=== PATIENT | male | born 1995 | race Native Hawaiian/Other Pacific Islander ===

== ENCOUNTER → 2016-12-07 | Outpatient (CLI) | payer OTHER ==
[~2016-12-07] MED LIST: ACETAMINOPHEN TAB 500 MG TAB PO ONE; LORATADINE 10 MG TAB PO ONE; SODIUM CHLORIDE 0.9% 250 ML in EMPTY BAG 1 BAG IV PRN; SODIUM CHLORIDE 0.9% 500 ML in EMPTY BAG 1 BAG IV PRN
[2016-12-07 07:42] VITALS: TEMP 98.3
[2016-12-07 09:21] VITALS: BP 117/59; PULSE 79; RESP 20
== END | disposition home or self-care (01) ==
LOC: PROCWHC3 07:05
PROVIDERS: ATTEND Physician Assistant
DX: K50.80 Crohn's disease of both small and large intestine without complications (principal)
CPT/HCPCS: 96413; 96415; J1745; 96361

== ENCOUNTER 2016-12-27 16:24 | Emergency (ER) | payer OTHER ==
[2016-12-27 17:03] VITALS: RESP 18
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
--- NOTE | 2016-12-27 18:21 | XR ---
EXAMINATION TYPE: XR hand complete LT DATE OF EXAM: 12/27/2016 5:50 PM COMPARISON: NONE HISTORY: Pain after injury 2 weeks ago TECHNIQUE: 3 views FINDINGS: Bones and joints and soft tissues are negative for acute findings. IMPRESSION: No acute process.
--- NOTE | 2016-12-27 18:24 | XR ---
EXAMINATION TYPE: XR knee complete LT DATE OF EXAM: 12/27/2016 5:50 PM COMPARISON: NONE HISTORY: Pain after injury, particularly anteriorly TECHNIQUE: 3 views FINDINGS: Small volume of suprapatellar bursal fluid is noted. There is no fracture or malalignment. IMPRESSION: For fracture or malalignment.
--- NOTE | 2016-12-27 18:44 | ED ---
Disposition Clinical Impression: Suprapatellar bursitis of left knee, Left hand pain Disposition: HOME SELF-CARE Condition: Good Instructions: Knee Bursitis (ED) Additional Instructions: Rest, elevate and ice on and off for 10-15 minutes for the next 24-48 hours. Take Tylenol or Motrin as needed for pain. Nonweight bearing of left leg. Please follow-up with quality control specialist in 24-48 hours for reevaluation. If new symptoms develop or symptoms worsen, please return to the ER. Referrals: Esteban Watkins DO [Doctor of Osteopathic Medicine] - 1-2 days Procedures - Orthopedic Splinting/Casting Injury #1 Side: left Lower Extremity Injury Location: knee Lower Extremity Immobilizer: Jered wrap Other Orthopedic Equipment: crutches
[2016-12-27 18:52] VITALS: BP 122/70; PULSE 60; TEMP 98.3
== END 2016-12-27 18:52 | disposition home or self-care (01) ==
LOC: EC 16:24
DX: M70.42 Prepatellar bursitis, left knee (principal); M79.642 Pain in left hand; Z79.899 Other long term (current) drug therapy; W22.8XXA Striking against or struck by other objects, initial encounter; W23.0XXA Caught, crushed, jammed, or pinched between moving objects, initial encounter; Y93.59 Activity, other involving other sports and athletics played individually
CPT/HCPCS: 99283

== ENCOUNTER → 2017-04-18 | Outpatient (CLI) | payer OTHER ==
[2017-04-18 11:44] VITALS: TEMP 98.3
[2017-04-18 13:33] VITALS: BP 100/56; PULSE 70; RESP 18
== END ==
LOC: PROCWHC3 11:22
PROVIDERS: ATTEND Physician Assistant
DX: K50.80 Crohn's disease of both small and large intestine without complications (principal)
CPT/HCPCS: 96413; 96415; J1745

== ENCOUNTER → 2017-07-21 | Outpatient (CLI) | payer OTHER ==
[~2017-07-21] MED LIST changes: -ACETAMINOPHEN TAB 500 MG TAB PO ONE; -LORATADINE 10 MG TAB PO ONE; -SODIUM CHLORIDE 0.9% 250 ML in EMPTY BAG 1 BAG IV PRN
[2017-07-21 09:28] VITALS: TEMP 98.2
[2017-07-21 10:49] VITALS: BP 100/52; PULSE 54; RESP 18
== END | disposition home or self-care (01) ==
LOC: PROCWHC3 08:40
PROVIDERS: ATTEND Physician Assistant
DX: Z51.11 Encounter for antineoplastic chemotherapy (principal); K50.80 Crohn's disease of both small and large intestine without complications
CPT/HCPCS: 96413; 96415; J1745

== ENCOUNTER → 2017-09-20 | Outpatient (CLI) | payer OTHER ==
[2017-09-20 23:25] VITALS: BP 114/69; PULSE 69; RESP 16; TEMP 98.5
== END | disposition home or self-care (01) ==
LOC: PROCWHC3 10:57
PROVIDERS: ATTEND Physician Assistant
DX: K50.80 Crohn's disease of both small and large intestine without complications (principal)
CPT/HCPCS: 96413; 96415; J1745

== ENCOUNTER → 2017-11-15 | Outpatient (CLI) | payer OTHER ==
[~2017-11-15] MED LIST changes: +INFLIXIMAB-DYYB 300 MG in SODIUM CHLORIDE 0.9% 250 ML IV ONE
[2017-11-15 11:52] VITALS: TEMP 98.6
[2017-11-15 12:22] VITALS: RESP 16
[2017-11-15 13:16] VITALS: BP 121/60; PULSE 79
== END | disposition home or self-care (01) ==
LOC: PROCWHC3 11:37
PROVIDERS: ATTEND Physician Assistant
DX: K50.80 Crohn's disease of both small and large intestine without complications (principal)
CPT/HCPCS: 96361; 96413; 96415; Q5102

== ENCOUNTER → 2018-01-10 | Outpatient (CLI) | payer OTHER ==
[~2018-01-10] MED LIST changes: +INFLIXIMAB-DYYB 300 MG in SODIUM CHLORIDE 0.9% 250 ML IV NR; -INFLIXIMAB-DYYB 300 MG in SODIUM CHLORIDE 0.9% 250 ML IV ONE
[2018-01-10 11:45] VITALS: RESP 16; TEMP 97.6
[2018-01-10 13:13] VITALS: BP 125/78; PULSE 78
== END | disposition home or self-care (01) ==
LOC: PROCWHC3 11:16
PROVIDERS: ATTEND Physician Assistant
DX: K50.80 Crohn's disease of both small and large intestine without complications (principal)
CPT/HCPCS: 96413; 96415; Q5103

== ENCOUNTER → 2018-03-07 | Outpatient (CLI) | payer OTHER ==
[2018-03-07 12:05] VITALS: RESP 16; TEMP 98
[2018-03-07 13:52] VITALS: BP 120/57; PULSE 68
== END | disposition home or self-care (01) ==
LOC: PROCWHC3 11:32
PROVIDERS: ATTEND Physician Assistant
DX: K50.80 Crohn's disease of both small and large intestine without complications (principal)
CPT/HCPCS: 96413; 96415; Q5103

== ENCOUNTER → 2018-05-02 | Outpatient (CLI) | payer OTHER ==
[2018-05-02 11:23] VITALS: RESP 16; TEMP 98
[2018-05-02 13:05] VITALS: BP 105/57; PULSE 64
== END | disposition home or self-care (01) ==
LOC: PROCWHC3 11:10
PROVIDERS: ATTEND Physician Assistant
DX: K50.80 Crohn's disease of both small and large intestine without complications (principal)
CPT/HCPCS: 96413; 96415; Q5103

== ENCOUNTER 2018-06-25 09:30 | Emergency (ER) | payer OTHER ==
[2018-06-25 09:46] VITALS: RESP 18
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
[2018-06-25 11:34] VITALS: BP 117/79; PULSE 74; TEMP 98.4
== END 2018-06-25 11:32 | disposition home or self-care (01) ==
LOC: EC 09:30
DX: T22.011A Burn of unspecified degree of right forearm, initial encounter (principal); T31.0 Burns involving less than 10% of body surface; X14.1XXA Other contact with hot air and other hot gases, initial encounter; Y92.59 Other trade areas as the place of occurrence of the external cause
CPT/HCPCS: 99283

== ENCOUNTER → 2018-06-27 | Outpatient (CLI) | payer OTHER ==
[2018-06-27 11:38] VITALS: RESP 16; TEMP 98.5
[2018-06-27 13:05] VITALS: BP 116/80; PULSE 64
== END ==
LOC: PROCWHC3 11:02
PROVIDERS: ATTEND Physician Assistant
DX: K50.80 Crohn's disease of both small and large intestine without complications (principal)
CPT/HCPCS: 96413; 96415; Q5103

== ENCOUNTER → 2018-08-29 | Outpatient (CLI) | payer OTHER ==
[~2018-08-29] MED LIST changes: +SODIUM CHLORIDE 0.9% 500 ML 500 ML in EMPTY BAG 1 BAG IV PRN; -SODIUM CHLORIDE 0.9% 500 ML in EMPTY BAG 1 BAG IV PRN
[2018-08-29 10:41] VITALS: RESP 16; TEMP 98.3
[2018-08-29 12:23] VITALS: BP 109/73; PULSE 79
== END ==
LOC: PROCWHC3 08-22 11:06
PROVIDERS: ATTEND Physician Assistant
DX: K50.80 Crohn's disease of both small and large intestine without complications (principal)
CPT/HCPCS: 96413; 96415; Q5103

== ENCOUNTER → 2018-10-26 | Outpatient (CLI) | payer OTHER ==
[2018-10-26 11:49] VITALS: TEMP 97.9
[2018-10-26 12:55] VITALS: RESP 15
[2018-10-26 13:31] VITALS: BP 161/65; PULSE 71
== END | disposition home or self-care (01) ==
LOC: PROCWHC3 11:18
PROVIDERS: ATTEND Physician Assistant
DX: K50.80 Crohn's disease of both small and large intestine without complications (principal)
CPT/HCPCS: 96413; 96415; Q5103

== ENCOUNTER → 2019-01-23 | Outpatient (CLI) | payer OTHER ==
[2019-01-23 08:17] VITALS: RESP 16; TEMP 97.7
[2019-01-23 09:59] VITALS: BP 103/55; PULSE 67
== END ==
LOC: PROCWHC3 08:03
PROVIDERS: ATTEND Physician Assistant
DX: K50.80 Crohn's disease of both small and large intestine without complications (principal)
CPT/HCPCS: 96413; 96415; Q5103

== ENCOUNTER → 2019-04-24 | Outpatient (CLI) | payer OTHER ==
[2019-04-24 12:37] VITALS: RESP 16; TEMP 98.5
[2019-04-24 13:42] VITALS: BP 117/69; PULSE 73
== END ==
LOC: PROCWHC3 12:23
PROVIDERS: ATTEND Physician Assistant
DX: K50.80 Crohn's disease of both small and large intestine without complications (principal)
CPT/HCPCS: 96413; 96415; Q5103

== ENCOUNTER → 2019-06-24 | Outpatient (CLI) | payer OTHER ==
[2019-06-24 13:01] VITALS: RESP 16; TEMP 98.1
[2019-06-24 14:54] VITALS: BP 120/70; PULSE 60
== END | disposition home or self-care (01) ==
LOC: PROCWHC3 11:50
DX: K50.80 Crohn's disease of both small and large intestine without complications (principal)
CPT/HCPCS: 96365; 96366; Q5103

== ENCOUNTER → 2019-08-23 | Outpatient (CLI) | payer OTHER ==
[2019-08-23 10:20] VITALS: TEMP 98.5
[2019-08-23 11:46] VITALS: BP 107/66; PULSE 79; RESP 18
== END | disposition home or self-care (01) ==
LOC: PROCWHC3 10:06
PROVIDERS: ATTEND Physician Assistant
DX: K50.80 Crohn's disease of both small and large intestine without complications (principal)
CPT/HCPCS: 96413; 96415; Q5103

== ENCOUNTER → 2019-10-28 | Outpatient (CLI) | payer OTHER ==
[2019-10-28 09:13] VITALS: TEMP 97.6
[2019-10-28 10:15] VITALS: RESP 18
[2019-10-28 10:47] VITALS: BP 108/70; PULSE 81
== END | disposition home or self-care (01) ==
LOC: PROCWHC3 09:01
PROVIDERS: ATTEND Physician Assistant
DX: K50.80 Crohn's disease of both small and large intestine without complications (principal)
CPT/HCPCS: 96413; 96415; Q5103

== ENCOUNTER → 2019-12-23 | Outpatient (CLI) | payer OTHER ==
[~2019-12-23] MED LIST changes: +INFLIXIMAB-DYYB 300 MG in SODIUM CHLORIDE 0.9% 220 ML IV NR; -INFLIXIMAB-DYYB 300 MG in SODIUM CHLORIDE 0.9% 250 ML IV NR
[2019-12-23 09:39] VITALS: RESP 16; TEMP 98
[2019-12-23 11:01] VITALS: BP 108/68; PULSE 83
== END | disposition home or self-care (01) ==
LOC: PROCWHC3 09:33
PROVIDERS: ATTEND Physician Assistant
DX: K50.80 Crohn's disease of both small and large intestine without complications (principal)
CPT/HCPCS: 96413; 96415; Q5103

== ENCOUNTER → 2020-03-16 | Outpatient (CLI) | payer OTHER ==
[~2020-03-16] MED LIST changes: +INFLIXIMAB-DYYB 300 MG in SODIUM CHLORIDE 0.9% 250 ML IV NR
[2020-03-16 07:38] VITALS: RESP 18
[2020-03-16 08:46] VITALS: TEMP 97.7
[2020-03-16 09:09] VITALS: BP 99/72; PULSE 52
== END | disposition home or self-care (01) ==
LOC: PROCWHC3 07:21
PROVIDERS: ATTEND Physician Assistant
DX: K50.80 Crohn's disease of both small and large intestine without complications (principal)
CPT/HCPCS: 96413; 96415; Q5103

== ENCOUNTER → 2020-06-16 | Outpatient (CLI) | payer OTHER ==
[~2020-06-16] MED LIST changes: -INFLIXIMAB-DYYB 300 MG in SODIUM CHLORIDE 0.9% 220 ML IV NR
[2020-06-16 12:13] VITALS: RESP 16; TEMP 98.4
[2020-06-16 12:50] VITALS: BP 106/67; PULSE 65
== END | disposition home or self-care (01) ==
LOC: PROCWHC3 11:09
PROVIDERS: ATTEND Physician Assistant
DX: K50.80 Crohn's disease of both small and large intestine without complications (principal)
CPT/HCPCS: 96413; 96415; Q5103

== ENCOUNTER → 2020-08-11 | Outpatient (CLI) | payer OTHER ==
[2020-08-11 11:02] VITALS: RESP 16; TEMP 98.3
[2020-08-11 12:27] VITALS: BP 99/57; PULSE 63
== END | disposition home or self-care (01) ==
LOC: PROCWHC3 10:49
PROVIDERS: ATTEND Physician Assistant
DX: K50.80 Crohn's disease of both small and large intestine without complications (principal)
CPT/HCPCS: 96413; 96415; Q5103

== ENCOUNTER → 2020-10-06 | Outpatient (CLI) | payer OTHER ==
[2020-10-06 08:25] VITALS: RESP 16; TEMP 97.6
[2020-10-06 09:31] VITALS: BP 99/56; PULSE 61
== END | disposition home or self-care (01) ==
LOC: PROCWHC3 08:13
PROVIDERS: ATTEND Physician Assistant
DX: K50.80 Crohn's disease of both small and large intestine without complications (principal)
CPT/HCPCS: 96413; 96415; Q5103

== ENCOUNTER → 2020-12-22 | Outpatient (CLI) | payer OTHER ==
[~2020-12-22] MED LIST changes: +INFLIXIMAB-DYYB 300 MG in SODIUM CHLORIDE 0.9% 220 ML IV NR
[2020-12-22 07:52] VITALS: RESP 16; TEMP 98
[2020-12-22 09:30] VITALS: BP 106/66; PULSE 72
== END | disposition home or self-care (01) ==
LOC: PROCWHC3 07:25
PROVIDERS: ATTEND Physician Assistant
DX: K50.90 Crohn's disease, unspecified, without complications (principal)
CPT/HCPCS: 96413; 96415; Q5103

== ENCOUNTER → 2021-02-23 | Outpatient (CLI) | payer OTHER ==
[~2021-02-23] MED LIST changes: -INFLIXIMAB-DYYB 300 MG in SODIUM CHLORIDE 0.9% 250 ML IV NR
[2021-02-23 08:51] VITALS: RESP 16; TEMP 98.3
[2021-02-23 10:41] VITALS: BP 106/66; PULSE 73
== END ==
LOC: PROCWHC3 08:41
PROVIDERS: ATTEND Physician Assistant
DX: K50.80 Crohn's disease of both small and large intestine without complications (principal)
CPT/HCPCS: 96413; 96415; Q5103

== ENCOUNTER → 2021-04-20 | Outpatient (CLI) | payer OTHER ==
[2021-04-20 09:35] VITALS: RESP 16; TEMP 97.8
[2021-04-20 10:43] VITALS: BP 126/76; PULSE 51
== END ==
LOC: PROCWHC3 08:52
PROVIDERS: ATTEND Physician Assistant
DX: K50.80 Crohn's disease of both small and large intestine without complications (principal)
CPT/HCPCS: 96413; 96415; Q5103

== ENCOUNTER → 2021-10-12 | Outpatient (CLI) | payer OTHER ==
[~2021-10-12] MED LIST changes: -INFLIXIMAB-DYYB 300 MG in SODIUM CHLORIDE 0.9% 220 ML IV NR; +INFLIXIMAB-DYYB 400 MG in SODIUM CHLORIDE 0.9% 250 ML IV NR
[2021-10-12 09:36] VITALS: RESP 16; TEMP 98
[2021-10-12 11:37] VITALS: BP 114/65; PULSE 65
== END ==
LOC: PROCWHC3 09:26
PROVIDERS: ATTEND Internal Medicine Gastroenterology
DX: K50.80 Crohn's disease of both small and large intestine without complications (principal)
CPT/HCPCS: 96413; 96415; Q5103

== ENCOUNTER → 2022-01-19 | Outpatient (CLI) | payer OTHER ==
[2022-01-19 11:39] VITALS: TEMP 98.4
[2022-01-19 12:16] VITALS: RESP 18
[2022-01-19 12:51] VITALS: BP 125/74; PULSE 75
== END ==
LOC: PROCWHC3 10:58
PROVIDERS: ATTEND Internal Medicine Gastroenterology
DX: K50.80 Crohn's disease of both small and large intestine without complications (principal)
CPT/HCPCS: 96413; 96415; Q5103

== ENCOUNTER → 2022-03-25 | Outpatient (CLI) | payer OTHER ==
[2022-03-25 09:34] VITALS: RESP 16; TEMP 98.2
[2022-03-25 11:20] VITALS: BP 104/69; PULSE 80
== END ==
LOC: PROCWHC3 09:16
PROVIDERS: ATTEND Internal Medicine Gastroenterology
DX: K50.80 Crohn's disease of both small and large intestine without complications (principal)
CPT/HCPCS: 96413; 96415; Q5103

== ENCOUNTER → 2022-05-20 | Outpatient (CLI) | payer OTHER ==
[2022-05-20 11:13] VITALS: RESP 16; TEMP 98.2
[2022-05-20 13:03] VITALS: BP 112/78; PULSE 63
== END ==
LOC: PROCWHC3 10:49
PROVIDERS: ATTEND Internal Medicine Gastroenterology
DX: K50.80 Crohn's disease of both small and large intestine without complications (principal)
CPT/HCPCS: 96365; Q5103

== ENCOUNTER → 2022-07-19 | Outpatient (CLI) | payer OTHER ==
[2022-07-19 08:34] VITALS: RESP 16; TEMP 98
[2022-07-19 10:00] VITALS: BP 103/62; PULSE 58
== END ==
LOC: PROCWHC3 08:21
PROVIDERS: ATTEND Internal Medicine Gastroenterology
DX: K50.80 Crohn's disease of both small and large intestine without complications (principal)
CPT/HCPCS: 96413; 96415; Q5103

== ENCOUNTER → 2022-10-10 | Outpatient (CLI) | payer OTHER ==
[2022-10-10 09:20] VITALS: RESP 16; TEMP 98.8
[2022-10-10 11:01] VITALS: BP 88/58; PULSE 57
== END ==
LOC: PROCWHC3 08:51
PROVIDERS: ATTEND Internal Medicine Gastroenterology
DX: K50.80 Crohn's disease of both small and large intestine without complications (principal)
CPT/HCPCS: 96413; 96415; Q5103

== ENCOUNTER → 2022-12-15 | Outpatient (CLI) | payer OTHER ==
[~2022-12-15] MED LIST changes: +INFLIXIMAB-DYYB 400 MG in SODIUM CHLORIDE 0.9% 210 ML IV NR; -INFLIXIMAB-DYYB 400 MG in SODIUM CHLORIDE 0.9% 250 ML IV NR
[2022-12-15 11:35] VITALS: TEMP 98.3
[2022-12-15 12:51] VITALS: BP 118/76; PULSE 74; RESP 16
== END ==
LOC: PROCWHC3 11:05
PROVIDERS: ATTEND Internal Medicine Gastroenterology
DX: K50.80 Crohn's disease of both small and large intestine without complications (principal)
CPT/HCPCS: 96413; 96415; Q5103

== ENCOUNTER → 2023-02-09 | Outpatient (CLI) | payer OTHER ==
[~2023-02-09] MED LIST changes: -INFLIXIMAB-DYYB 400 MG in SODIUM CHLORIDE 0.9% 210 ML IV NR; +INFLIXIMAB-DYYB 400 MG in SODIUM CHLORIDE 0.9% 250 ML IV NR
[2023-02-09 10:50] VITALS: RESP 16; TEMP 98.1
[2023-02-09 12:25] VITALS: BP 124/76; PULSE 70
== END ==
LOC: PROCWHC3 10:34
PROVIDERS: ATTEND Internal Medicine Gastroenterology
DX: K50.80 Crohn's disease of both small and large intestine without complications (principal)
CPT/HCPCS: 96413; 96415; Q5103

== ENCOUNTER → 2023-04-28 | Outpatient (CLI) | payer OTHER ==
[2023-04-28 09:12] VITALS: TEMP 97.8
[2023-04-28 10:06] VITALS: RESP 16
[2023-04-28 10:55] VITALS: BP 115/72; PULSE 64
== END ==
LOC: PROCWHC3 09:02
PROVIDERS: ATTEND Internal Medicine Gastroenterology
DX: K50.90 Crohn's disease, unspecified, without complications (principal)
CPT/HCPCS: 96413; 96415; Q5103

== ENCOUNTER → 2023-06-23 | Outpatient (CLI) | payer OTHER ==
[2023-06-23 11:11] VITALS: RESP 16; TEMP 98.3
[2023-06-23 12:27] VITALS: BP 102/67; PULSE 75
== END ==
LOC: PROCWHC3 10:11
PROVIDERS: ATTEND Internal Medicine Gastroenterology
DX: K50.90 Crohn's disease, unspecified, without complications (principal)
CPT/HCPCS: 96413; 96415; Q5103

== ENCOUNTER → 2023-09-29 | Outpatient (CLI) | payer OTHER ==
[2023-09-29 09:27] VITALS: RESP 16; TEMP 98.1
[2023-09-29 10:40] VITALS: BP 111/67; PULSE 76
== END ==
LOC: PROCWHC3 09:00
PROVIDERS: ATTEND Internal Medicine Gastroenterology
DX: K50.90 Crohn's disease, unspecified, without complications (principal)
CPT/HCPCS: 96413; 96415; Q5103

== ENCOUNTER → 2023-11-29 | Outpatient (CLI) | payer OTHER ==
[2023-11-29] MEDS: SODIUM CHLORIDE 0.9% 500 ML 500 ML in EMPTY BAG 1 BAG IV PRN (10:10)
[2023-11-29] MEDS: INFLIXIMAB-DYYB 400 MG in SODIUM CHLORIDE 0.9% 250 ML IV NR (10:26)
[2023-11-29 10:35] VITALS: RESP 16; TEMP 97.6
[2023-11-29 11:44] VITALS: BP 113/72; PULSE 68
== END ==
LOC: PROCWHC3 10:01
PROVIDERS: ATTEND Internal Medicine Gastroenterology
DX: K50.90 Crohn's disease, unspecified, without complications (principal)
CPT/HCPCS: 96413; 96415; Q5103

== ENCOUNTER → 2024-01-23 | Outpatient (CLI) | payer OTHER ==
[2024-01-23] MEDS: SODIUM CHLORIDE 0.9% 500 ML 500 ML in EMPTY BAG 1 BAG IV PRN (08:45)
[2024-01-23] MEDS: INFLIXIMAB-DYYB 400 MG in SODIUM CHLORIDE 0.9% 250 ML IV NR (09:16)
[2024-01-23 09:21] LABS: Basophils # (A) 0.1 k/uL (0-0.2); Basophils % (A) 1 %; Eosinophils # (A) 0.1 k/uL (0-0.7); Eosinophils % (A) 2 %; HCT 48.1 % (39.0-53.0); HGB 15.8 gm/dL (13.0-17.5); Lymphocytes # (A) 2.3 k/uL (1.0-4.8); Lymphocytes % (A) 28 %; MCHC 32.9 g/dL (31.0-37.0); Mean Platelet Volume 8.4; Monocytes # (A) 0.5 k/uL (0-1.0); Monocytes % (A) 7 %; Neutrophils # (A) 4.9 k/uL (1.3-7.7); Neutrophils % (A) 61 %; Platelet Count 263 k/uL (150-450); RBC 5.28 m/uL (4.30-5.90); RDW 12.9 % (11.5-15.5); WBC 8.1 k/uL (3.8-10.6)
[2024-01-23 09:44] LABS: ALT 31 U/L (4-49); AST 27 U/L (17-59); African American GFR (CKD) >90 (>60 ml/min/1.73 sqM); Albumin 4.2 g/dL (3.5-5.0); Alkaline Phosphatase 82 U/L (38-126); Anion Gap 6 mmol/L; Blood Urea Nitrogen 12 mg/dL (9-20); Calcium 9.4 mg/dL (8.4-10.2); Carbon Dioxide 28 mmol/L (22-30); Chloride 106 mmol/L (98-107); Glucose 94 mg/dL (74-99); Non-African American GFR(CKD) >90 (>60 ml/min/1.73 sqM); Potassium 4.2 mmol/L (3.5-5.1); Sodium 140 mmol/L (137-145); Total Bilirubin 0.4 mg/dL (0.2-1.3)
[2024-01-23 09:49] VITALS: RESP 16; TEMP 98
[2024-01-23 10:38] VITALS: BP 118/71; PULSE 69
== END ==
LOC: PROCWHC3 08:39
PROVIDERS: ATTEND Internal Medicine Gastroenterology
DX: K50.90 Crohn's disease, unspecified, without complications (principal)
CPT/HCPCS: 80053; 85025; 96413; 96415; Q5103

== ENCOUNTER → 2024-08-26 | Outpatient (CLI) | payer OTHER ==
[~2024-08-26] MED LIST changes: -INFLIXIMAB-DYYB 400 MG in SODIUM CHLORIDE 0.9% 250 ML IV NR; +SODIUM CHLORIDE 0.9% 250 ML in EMPTY BAG 1 BAG IV PRN; -SODIUM CHLORIDE 0.9% 500 ML 500 ML in EMPTY BAG 1 BAG IV PRN
[2024-08-26 09:23] VITALS: RESP 16; TEMP 97.5
[2024-08-26] MEDS: SODIUM CHLORIDE 0.9% 500 ML 500 ML in EMPTY BAG 1 BAG IV PRN (09:25)
[2024-08-26] MEDS: INFLIXIMAB-DYYB 400 MG in SODIUM CHLORIDE 0.9% 210 ML IV NR (09:53)
[2024-08-26 11:00] VITALS: BP 114/75; PULSE 64
== END ==
LOC: PROCWHC3 09:10
PROVIDERS: ATTEND Nurse Practitioner Family
DX: K50.90 Crohn's disease, unspecified, without complications (principal)
CPT/HCPCS: 96413; 96415; Q5103

== ENCOUNTER → 2024-12-26 | Outpatient (CLI) | payer OTHER ==
[2024-12-26 09:19] VITALS: RESP 16; TEMP 97.8
[2024-12-26] MEDS: SODIUM CHLORIDE 0.9% 500 ML 500 ML in EMPTY BAG 1 BAG IV PRN (09:20)
[2024-12-26] MEDS: INFLIXIMAB-DYYB 400 MG in SODIUM CHLORIDE 0.9% 210 ML IV NR (09:32)
[2024-12-26 10:39] VITALS: BP 108/67; PULSE 57
== END ==
LOC: PROCWHC3 09:00
PROVIDERS: ATTEND Nurse Practitioner Family
DX: K50.90 Crohn's disease, unspecified, without complications (principal)
CPT/HCPCS: 96413; 96415; Q5103